=== PATIENT | male | born 1985 | race Caucasian/White ===

== ENCOUNTER 2017-06-27 09:08 | Emergency (ER) | payer OTHER ==
[~2017-06-27] VITALS: Ht 182.9 cm; Wt 79.0 kg
[2017-06-27 09:13] VITALS: BP 106/69; PULSE 93; TEMP 36.8; O2SAT 97; Ht 182.9 cm; Wt 79.0 kg
--- NOTE | 2017-06-27 10:01 | DIAGNOSTIC IMAGING REPORT ---
RIGHT WRIST 5 VIEWS CLINICAL HISTORY: Right wrist injury. FINDINGS: 5 views of the right wrist are obtained. No prior studies are available for comparison at the time of dictation. The skeletal structures are well mineralized. No fracture is seen. The joint spaces of the wrist are well-maintained. Mild overlying soft tissue swelling is noted. IMPRESSION: Mild soft tissue swelling with no radiographic evidence of right wrist fracture. If there is strong clinical concern for occult fracture consider short-term radiographic follow-up. Electronically signed by: Grey Hirsch M.D. 06/27/2017 9:59 AM Dictated Date/Time: 06/27/2017 9:58 AM
--- NOTE | 2017-06-27 14:33 | EMERGENCY ROOM VISIT NOTE ---
History First contact with patient: 09:32 Chief Complaint: WRIST PAIN Stated Complaint: WRIST PAIN - WORKERS COMP History of Present Illness The patient is a 31 year old male who presents to the Emergency Room with complaints of persistent right wrist pain after injuring his wrist at work 2 days ago. The patient was pulling on a breaker bar while under a trailer, and felt a tearing sensation along the ulnar aspect of the wrist. He also reports occasional numbness and tingling of the fingers. He denies any pain extending into the elbow region. The patient is [id number], and rates his discomfort a 1 out of 10. Review of Systems 10 system review was performed and was negative except for pertinent positives and negatives as indicated in history of present illness Past Medical/Surgical History Medical Problems: (1) Drug Abuse Nec-Unspec (2) Tobacco Use Disorder Surgical Problems: (1) No history of previous surgery Family History FHx: hypercholesterolemia Heart disease in male family member before age 55 Hypertension Social History Smoking Status: Current Every Day Smoker Alcohol Use: occasionally Drug Use: none Housing Status: lives with family Occupation Status: employed Current/Historical Medications No Active Prescriptions or Reported Meds Physical Exam Vital Signs Date Time Temp Pulse Resp B/P (MAP) Pulse Ox O2 Delivery O2 Flow Rate FiO2 06/27/17 09:13 36.8 93 16 106/69 97 Room Air Physical Exam CONSTITUTIONAL: Healthy and well nourished. Alert and oriented X 3 with positive affect. HEENT: Normocephalic, atraumatic. Pupils equal, round and reactive. NECK: Full active range of motion without discomfort. MUSCULOSKELETAL: Examination of the right wrist does not show any obvious soft tissue edema, ecchymosis or erythema. The patient has mild tenderness to palpation over the volar and ulnar aspect of the wrist. He has no focal tenderness over the ulnar styloid. Negative anatomic snuffbox tenderness. He has worsening discomfort with pronation and supination. The refill is less than 2 seconds. INTEGUMENTARY: No rash or other significant dermatologic conditions noted. NEUROLOGIC: Right hand and fingers are sensory intact. Medical Decision & Procedures ER Provider Diagnostic Interpretation: My interpretation of right wrist x-rays does not show any acute fractures or dislocations. Radiologist report is as follows: RIGHT WRIST 5 VIEWS CLINICAL HISTORY: Right wrist injury. FINDINGS: 5 views of the right wrist are obtained. No prior studies are available for comparison at the time of dictation. The skeletal structures are well mineralized. No fracture is seen. The joint spaces of the wrist are well-maintained. Mild overlying soft tissue swelling is noted. IMPRESSION: Mild soft tissue swelling with no radiographic evidence of right wrist fracture. If there is strong clinical concern for occult fracture consider short-term radiographic follow-up. ED Course Patient history and physical exam were performed. Nurse's notes were reviewed. Vital signs were reviewed and were normal. X-rays of the right wrist were also normal. A wrist brace was applied, and the patient was instructed to follow-up with his Worker's Compensation approved orthopedic surgeon for further reevaluation and management. Ice and elevation for swelling. Ibuprofen and Tylenol as needed for pain. The patient voiced understanding of all discharge instructions, was happy with plan of care, and denied any significant pain at the time of discharge. Medical Decision Blood Pressure Screening Patient's blood pressure: Normal blood pressure Impression Primary Impression: Right wrist injury Additional Impression: Work related injury Departure Information Prescriptions No Active Prescriptions or Reported Meds Referrals Santana Saldana M.D. (PCP) Patient Instructions [facility] Problem Qualifiers Primary Impression: Right wrist injury Encounter type: initial encounter Qualified Codes: S69.91XA - Unspecified injury of right wrist, hand and finger(s), initial encounter
== END 2017-06-27 11:06 | disposition home or self-care (01) ==
LOC: C.EDB 09:09
DX: S69.91XA Unspecified injury of right wrist, hand and finger(s), initial encounter (principal); M25.531 Pain in right wrist; M25.431 Effusion, right wrist; X50.9XXA Other and unspecified overexertion or strenuous movements or postures, initial encounter; Y99.0 Civilian activity done for income or pay; Y92.89 Other specified places as the place of occurrence of the external cause; F17.210 Nicotine dependence, cigarettes, uncomplicated